=== PATIENT | male | born 1970 | race Caucasian/White ===

== ENCOUNTER → 2017-12-29 12:07 | Day surgery (SDC) | payer OTHER ==
[~2017-12-29 12:07] MED LIST: Atracurium* 10 MG/ML 10 ML VIAL ONE; Buffered Lidocaine 0.9% SYRIN* 5 ML/SYR SYRINGE INTRADERM ONE; Buffered Lidocaine 0.9% SYRIN* 5 ML/SYR SYRINGE ONE; Dexamethasone IV* 4 MG/ML 1 ML (4 MG) ONE; DiMENhydriNATE IV* 50 MG/ML VIAL IV PUSH PRN; Famotidine IV* 10 MG/ML 2 ML (20 mg) IV ONE; Famotidine IV* 10 MG/ML 2 ML (20 mg) ONE; Glycopyrrolate IV* 0.2 MG/ML 1 ML VIAL ONE; HYDROcodone/ACETAMIN 5-325 MG* 1 TAB PO PRN; Ketorolac INJ* 30 MG/ML 1 ML VIAL ONE; Lidocaine 1% MPF wEPI 200,000* 30 ML SDV ONE; Metoclopramide TAB* 10 MG ONE; Metoclopramide TAB* 10 MG PO ONE; Midazolam* 1 MG/ML 5 ML VIAL (5 MG) ONE; Naloxone* 0.4 MG/ML 1 ML VIAL IV PRN; Neostigmine Methylsulfate* 2 MG/2 ML SYRINGE ONE; Ondansetron INJ* 2 MG/ML VIAL IV PRN; Ondansetron INJ* 2 MG/ML VIAL ONE; Propofol* 10 MG/ML 20 ML BTL IV PUSH ONE; ceFAZolin 1 GM VIAL(*) ONE; fentaNYL* 50 MCG/ML 2 ML VIAL (100 MCG VIAL) IV PRN; fentaNYL* 50 MCG/ML 2 ML VIAL (100 MCG VIAL) ONE; oxyCODONE/Acetamin 5/325 MG* TAB PO PRN
[2017-12-29 16:23] VITALS: BP 113/66
--- NOTE | 2017-12-30 11:23 | OP ---
DATE OF OPERATION: 12/29/17 - [facility] DATE OF : 74 SURGEON: Irvin Lewis MD PST SPECIALIST: CANDICE Lee, first coat operator. ANESTHESIOLOGIST: Roverto Velázquez MD ANESTHESIA: General endotracheal anesthesia. PRE-OP DIAGNOSIS: Left neck lymphadenopathy, deep. POST-OP DIAGNOSIS: Left neck lymphadenopathy, deep. OPERATIVE PROCEDURE: Open excisional biopsy of left supraclavicular lymph node in the left neck under general endotracheal anesthesia. ESTIMATED BLOOD LOSS: Minimum. SPECIMEN: Left neck lymph node. DESCRIPTION OF PROCEDURE: The patient was taken to the operating room and placed in supine position on the operating room table, general anesthesia induced and orotracheally intubated, turned and draped for the surgery. Head was extended and then incision over just superior to the left clavicle was demarcated and injected with 1% lidocaine with 1:200,000 epinephrine. Incision was made through the skin, subplatysmal muscle. Inferior and superior flaps were raised. The anterior sternocleidomastoid muscle was isolated. Dissection was taken down. The omohyoid muscle was found and deep and inferior to this was found a bunch of hard lymph nodes. I dissected one of them out, it was marble sized with blunt dissection and bipolar and sent to Pathology. They said this was an adequate specimen consistent what they had seen on fine needle aspiration biopsy. Hemostasis was assured. The wound was closed with 3-0 deep dermal Vicryl, a running subcuticular 4-0 Monocryl, skin glue, and Steri- Strips. The patient tolerated the procedure well, no complications, transferred to the recovery room in stable condition. [id number]/[facility] #: [id number] [facility]
== END | disposition home or self-care (01) ==
LOC: OR 12:07
PROVIDERS: ATTEND Otolaryngology
DX: C81.11 Nodular sclerosis Hodgkin lymphoma, lymph nodes of head, face, and neck (principal)
CPT/HCPCS: 88184; 88188; 88305; 88333; 88341; 88342; A9270-GY; J0690; J1100; J1885; J2001; J2250; J2405; J2704; J3010

== ENCOUNTER → 2018-01-20 06:20 | Day surgery (SDC) | payer OTHER ==
[~2018-01-20 06:20] MED LIST changes: -Atracurium* 10 MG/ML 10 ML VIAL ONE; -Buffered Lidocaine 0.9% SYRIN* 5 ML/SYR SYRINGE INTRADERM ONE; -Buffered Lidocaine 0.9% SYRIN* 5 ML/SYR SYRINGE ONE; -Dexamethasone IV* 4 MG/ML 1 ML (4 MG) ONE; -DiMENhydriNATE IV* 50 MG/ML VIAL IV PUSH PRN; -Famotidine IV* 10 MG/ML 2 ML (20 mg) IV ONE; -Famotidine IV* 10 MG/ML 2 ML (20 mg) ONE; -Glycopyrrolate IV* 0.2 MG/ML 1 ML VIAL ONE; -HYDROcodone/ACETAMIN 5-325 MG* 1 TAB PO PRN; -Ketorolac INJ* 30 MG/ML 1 ML VIAL ONE; +Lidocaine 1% INJ* 10 MG/ML 30 ML SDV ONE; -Lidocaine 1% MPF wEPI 200,000* 30 ML SDV ONE; -Metoclopramide TAB* 10 MG ONE; -Metoclopramide TAB* 10 MG PO ONE; -Midazolam* 1 MG/ML 5 ML VIAL (5 MG) ONE; -Naloxone* 0.4 MG/ML 1 ML VIAL IV PRN; -Neostigmine Methylsulfate* 2 MG/2 ML SYRINGE ONE; -Ondansetron INJ* 2 MG/ML VIAL IV PRN; -Ondansetron INJ* 2 MG/ML VIAL ONE; -Propofol* 10 MG/ML 20 ML BTL IV PUSH ONE; -ceFAZolin 1 GM VIAL(*) ONE; -fentaNYL* 50 MCG/ML 2 ML VIAL (100 MCG VIAL) IV PRN; -fentaNYL* 50 MCG/ML 2 ML VIAL (100 MCG VIAL) ONE; -oxyCODONE/Acetamin 5/325 MG* TAB PO PRN
[2018-01-20 06:58] VITALS: BP 127/70
--- NOTE | 2018-01-20 10:07 | RAD ---
INDICATION: Status post PowerPort central venous catheter placement. COMPARISON: There are no prior studies available for comparison. TECHNIQUE: A portable view of the chest was obtained. FINDINGS: There is a power port central venous catheter present on the right side. The catheter demonstrates normal course. The catheter tip projects over the right atrium. The heart is within normal limits in size. The lungs are clear. No pleural effusion or pneumothorax is seen. There is a linear area of increased density which projects adjacent to the posterior right seventh rib possibly external to the patient less likely from an old healed fracture. IMPRESSION: STATUS POST CENTRAL VENOUS CATHETER PLACEMENT, NO EVIDENCE FOR ACUTE FINDING.
--- NOTE | 2018-01-20 10:08 | RAD ---
Indication: PowerPort placement. Fluoroscopic services provided for referring physician. 16.6 seconds of fluoroscopy time was used. Single spot image was obtained. Catheter is not visualized. IMPRESSION: Fluoroscopic services provided for referring physician. CPT II Codes: 6045F.
--- NOTE | 2018-01-20 23:27 | OP ---
CC: Dr. Jaleel Nunez; Dr. Tad Jacques * DATE OF OPERATION: 01/20/18 - [facility] DATE OF : 74 SURGEON: Solis Howard MD AUDIO VIDEO TECH: None. ANESTHESIOLOGIST: None. PRE-OP DIAGNOSIS: Lymphoma. POST-OP DIAGNOSIS: Lymphoma. OPERATIVE PROCEDURE: Placement of right subclavian 8-Faroese PowerPort. DESCRIPTION OF PROCEDURE: The patient was supine on the fluoroscopy table. The right chest and neck region are prepped with antiseptic, draped in the sterile fashion. Local infiltrative anesthesia was administered in the right subclavian region, approximately 3 cm incision was created and inferior pocket was created. Subclavian venipuncture was carried out. Guidewire passed through the peel away introducer. It is measured and cut under fluoroscopy at 24 cm. It is attached to the port which was sutured in the pocked with 2-0 Prolene. Pocket was closed with 3-0 and 5-0 Vicryl followed by Steri-Strips. The port is accessed. There was good blood return. It was flushed with saline solution and heparinized solution. Everything looks good on fluoroscopy. A Tegaderm was used to cover the needle and he is brought to recovery in good condition. There are no complications. No drains. No pathologic specimens. Sponge and instrument counts correct. Estimated blood loss is less than 10 mL. [id number]/[facility] #: [id number] [facility]
== END | disposition home or self-care (01) ==
LOC: OR 06:20
PROVIDERS: ATTEND Surgery
DX: C96.9 Malignant neoplasm of lymphoid, hematopoietic and related tissue, unspecified (principal)
CPT/HCPCS: 71045; 76000; C1788; J1642